=== PATIENT | female | born 1975 | race Caucasian/White ===

== ENCOUNTER → 2018-02-02 | Outpatient (CLI) | payer OTHER ==
--- NOTE | 2018-02-03 09:55 | USB ---
Reason for exam: clinical finding. History: Family history of premenopausal breast cancer in sister at age 20, premenopausal breast cancer in mother at age 50, and breast cancer in maternal grandmother. Benign stereotactic core biopsy of the right breast, November 28, 2004. Stereotactic core biopsy of the right breast, June 13, 2004. Took hormonal contraceptives for 3 years beginning at age 17. Taking antineoplastic for 2 years. Physical Findings: Nurse Summary: Patient complains of left axilla tenderness x 3 days (nurse nevin). US Breast LT Left complete breast ultrasound includes all four quadrants, the retroareolar region and axilla. Finding demonstrates no cystic or solid lesion seen. No abnormality seen in the axilla at the site of pain. These results were verbally communicated with the patient and result sheet given to the patient on 02/02/18. ASSESSMENT: Negative, BI-RAD 1 RECOMMENDATION: Return to routine screening mammogram schedule for both breasts. Back on schedule for June 2018. Manage on a clinical basis with regard to axillary pain.
== END | disposition home or self-care (01) ==
LOC: RADUSWWP 10:17
PROVIDERS: ATTEND Internal Medicine Hematology & Oncology
DX: N63.20 Unspecified lump in the left breast, unspecified quadrant (principal)

== ENCOUNTER → 2018-08-10 | Outpatient (CLI) | payer OTHER ==
--- NOTE | 2018-08-11 13:51 | MM ---
Reason for exam: screening (asymptomatic). Last mammogram was performed 1 year ago. History: Family history of premenopausal breast cancer in sister at age 20, premenopausal breast cancer in mother at age 50, and breast cancer in maternal grandmother. Benign stereotactic core biopsy of the right breast, November 28, 2004. Stereotactic core biopsy of the right breast, June 13, 2004. Took hormonal contraceptives for 3 years beginning at age 17. Taking antineoplastic for 2 years. Physical Findings: A clinical breast exam by your physician is recommended on an annual basis and results should be correlated with mammographic findings. MG Screening Mammo w CAD Bilateral CC and MLO view(s) were taken. Prior study comparison: July 28, 2017, bilateral MG screening mammo w CAD. June 11, 2016, bilateral MG screening mammo w CAD. There are scattered fibroglandular densities. Right biopsy marker noted. ASSESSMENT: Negative, BI-RAD 1 RECOMMENDATION: Routine screening mammogram of both breasts in 1 year. Manage on a clinical basis with regard to bilateral intermittent axillary pain x 1 year.
== END | disposition home or self-care (01) ==
LOC: RADMAMWWP 13:28
PROVIDERS: ATTEND Family Medicine
DX: Z12.31 Encounter for screening mammogram for malignant neoplasm of breast (principal)
CPT/HCPCS: 77067

== ENCOUNTER → 2019-01-30 | Outpatient (CLI) | payer OTHER ==
--- NOTE | 2019-01-30 09:01 | USB ---
Reason for exam: clinical finding. History: Family history of premenopausal breast cancer in sister at age 20, premenopausal breast cancer in mother at age 50, and breast cancer in maternal grandmother. Benign stereotactic core biopsy of the right breast, November 28, 2004. Stereotactic core biopsy of the right breast, June 13, 2004. Took hormonal contraceptives for 3 years beginning at age 17. Taking antineoplastic for 2 years. Indicated problem(s): pain in the right breast. Physical Findings: Nurse Summary: Patient complains of right axilla pain, intermittent sore/achy, occasional sharp pains x 6 month (nurse nevin). US Breast RT Right complete breast ultrasound includes all four quadrants, the retroareolar region and axilla. Finding demonstrates no cystic or solid lesion seen. Morphologically normal 6 axillary node stable on mammogram back to 2016. No cortical thickening. These results were verbally communicated with the patient and result sheet given to the patient on 01/30/19. ASSESSMENT: Benign, BI-RAD 2 RECOMMENDATION: Return to routine screening mammogram schedule for both breasts. Back on schedule. Manage patient on a clinical basis.
== END | disposition home or self-care (01) ==
LOC: RADUSWWP 06:50
PROVIDERS: ATTEND Internal Medicine Hematology & Oncology
DX: N64.4 Mastodynia (principal)

== ENCOUNTER → 2019-02-14 | Outpatient (CLI) | payer OTHER ==
--- NOTE | 2019-02-15 22:08 | US ---
EXAMINATION TYPE: US axilla RT DATE OF EXAM: 02/14/2019 COMPARISON: NONE CLINICAL HISTORY: R59.1 Lymphadenopathy. Intermittent bilateral axilla pain x 1 year Right axilla at patient's area of pain: appears wnl as seen IMPRESSION: As above. No suspicious adenopathy noted.
--- NOTE | 2019-02-15 22:09 | US ---
EXAMINATION TYPE: US axilla LT DATE OF EXAM: 02/14/2019 COMPARISON: NONE CLINICAL HISTORY: R59.1 Lymphadenopathy. Intermittent bilateral axilla pain x 1 year Left axilla at patient's area of pain: appears wnl as seen IMPRESSION: As above. No suspicious adenopathy. Similar findings noted in the opposite right axilla.
== END | disposition home or self-care (01) ==
LOC: RADUSWWP 15:23
PROVIDERS: ATTEND Surgery
DX: R59.1 Generalized enlarged lymph nodes (principal)

== ENCOUNTER 2020-03-08 11:05 | Day surgery (SDC) | payer OTHER ==
[2020-03-05 14:54] VITALS: BMI 43.8
[~2020-03-08 11:05] MED LIST: HYDROmorphone 0.5 MG/0.5 ML SYRINGE IVP PRN; LACTATED RINGERS 1,000 ML IV SCH; LIDOCAINE 1% (10MG/ML) FOR IV START INTRADERMA PRN; ONDANSETRON 4 MG/2 ML VIAL IVP ONE; Pre Op ABX Message 1 EACH MISC MISCELLANE ONE
[2020-03-08] MEDS ORDERED: LIDOCAINE 1% (10MG/ML) FOR IV START INTRADERMA ONE (11:44)
[2020-03-08 11:51] LABS: Glucose,Whole Blood 147 mg/dL (75-99)
[2020-03-08] MEDS ORDERED: ONDANSETRON 4 MG/2 ML VIAL IVP ONE (11:51)
[2020-03-08] MEDS ORDERED: DEXAMETHASONE SOD PHOS (MDV) 100 MG/10 ML VIAL IVP ONE (11:51)
[2020-03-08 11:54] VITALS: TEMP 97.1
[2020-03-08] MEDS ORDERED: PROPOFOL 10 MG/ML 20 ML VIAL IV ONE (13:02)
[2020-03-08] MEDS ORDERED: fentaNYL (PF) 50 MCG/ML 2 ML AMP ONE (13:02)
[2020-03-08] MEDS ORDERED: MIDAZOLAM 2 MG/2 ML VIAL ONE (13:02)
[2020-03-08] MEDS ORDERED: KETOROLAC 15 MG/ML 1 ML VIAL ONE (13:02)
[2020-03-08] MEDS ORDERED: LIDOCAINE 1%-EPI 1:100,000 20 ML VIAL SQ ONE ×2 (13:26)
[2020-03-08] MEDS ORDERED: BUPIVACAINE (PF) 0.5% 30 ML VIAL SQ ONE (13:26)
[2020-03-08 14:04] LABS: Glucose,Whole Blood 168 mg/dL (75-99)
[2020-03-08 14:14] VITALS: RESP 18
[2020-03-08 14:55] VITALS: BP 132/65; PULSE 100
--- NOTE | 2020-03-10 22:11 | P.OP ---
Date of Procedure: 03/08/20 Preoperative Diagnosis: Left carpal tunnel syndrome Postoperative Diagnosis: Left carpal tunnel syndrome Procedure(s) Performed: Left endoscopic carpal tunnel release Anesthesia: MAC, local Surgeon: Kameron Gonzalez Estimated Blood Loss (ml): 1 Condition: stable Disposition: same day Indications for Procedure: The patient is a 44-year-old female who was diagnosed with left carpal tunnel syndrome. Treatment options (and associated risks and benefits) were discussed in the office; the patient elected to undergo surgical release. In preop, additional questions were addressed and the patient wished to proceed with surgery. Consent forms were signed. The operative site was confirmed and marked in preop. Description of Procedure: The patient was positioned supine with the left arm on a hand table. A tourniquet was applied. Anesthesia was administered uneventfully. A time-out was performed, confirming patient identifiers, the operative side, site and the procedure to be performed: all team members expressed agreement. Using aseptic technique, local anesthetic was injected into the subcutaneous tissues around the planned incision. The left upper extremity was then prepped and draped in standard, sterile fashion. The limb was exsanguinated with an Esmarch and the tourniquet was inflated. Loupe magnification was used throughout the case for optimum visualization. A 1.5 cm transverse incision was marked proximal to the wrist flexion crease, in line with the radial border of the ring finger. The skin was sharply incised and the subcutaneous tissues were bluntly spread. The volar carpal fascia was identified and sharply incised in line with the path of the nerve. The median nerve was visualized below. Attempts to insert a synovial elevator demonstrated tethering against the nerve. A Troy was used to gently release the perineural adhesions. The synovial elevator was reinserted and passed easily. This was used to clear the underside of the transverse carpal ligament and release any remaining adhesions. The washboard effect was palpable. A dilator was inserted to sound and enlarge the carpal tunnel. The hamate hook was palpable ulnarly. The introitus to the tunnel was noted to be quite tight. The distal aspect of the volar carpal fascia was notably thickened; this was released under direct visualization, providing better access to the tunnel. The side-specific guide and camera were inserted. The transverse carpal ligament was clearly visualized above. The distal edge of the ligament was identified and palpated with a probe. A rasp was used to clear the remaining synovial adhesions. The endoscopic blade was inserted and the distal half of the ligament was sharply incised. Residual distal transverse fibers were released and then the proximal portion of the ligament was divided. Once fully released, the cut leaflets of the ligament spread apart widely. The camera and guide were removed. Proximal to the incision, the volar carpal/antebrachial fascia was released with scissors under direct visualization. At the level of the incision (and slightly proximal), there was a small amout of thickened perineural tissue causing some focal compression and restricting nerve mobility. A limited local median neurolysis was performed to release this tissue. The tourniquet was released after 14 minutes at 175 mmHg. Excellent hemostasis was obtained with manual pressure. The wound was thoroughly irrigated with normal saline. The incision was closed with interrupted 4-0 nylon sutures. Additional local anesthetic with epinephrine was injected for adjunct postoperative pain control and hemostasis. A soft, sterile dressing was applied. All sponge, needle and instrument counts were correct at the end of the case. The patient tolerated the procedure well and was transferred to recovery in stable condition.
== END 2020-03-08 15:18 | disposition home or self-care (01) ==
LOC: OR 11:05
PROVIDERS: ATTEND Orthopaedic Surgery
DX: G56.02 Carpal tunnel syndrome, left upper limb (principal); E11.9 Type 2 diabetes mellitus without complications; E78.5 Hyperlipidemia, unspecified; H91.90 Unspecified hearing loss, unspecified ear; Z97.3 Presence of spectacles and contact lenses; J45.909 Unspecified asthma, uncomplicated; Z96.652 Presence of left artificial knee joint; Z98.890 Other specified postprocedural states; Z83.3 Family history of diabetes mellitus; Z87.891 Personal history of nicotine dependence; Z79.891 Long term (current) use of opiate analgesic; Z79.84 Long term (current) use of oral hypoglycemic drugs; Z79.890 Hormone replacement therapy; Z79.899 Other long term (current) drug therapy
CPT/HCPCS: 29848; J2250; J2405; J3010; J1100; J1885; J2704; 93005

== ENCOUNTER 2021-12-06 22:17 | Emergency (ER) | payer OTHER ==
[2021-12-06 23:17] VITALS: BP 135/87; PULSE 81; RESP 18; TEMP 98
[2021-12-06] MEDS ORDERED: ACETAMINOPHEN TAB 500 MG TAB PO STA (23:18)
--- NOTE | 2021-12-06 23:48 | XR ---
EXAMINATION TYPE: XR foot complete LT DATE OF EXAM: 12/06/2021 COMPARISON: NONE HISTORY: Stubbed big toe TECHNIQUE: 3 views FINDINGS: Metatarsals are intact. I see no fracture nor dislocation. Joint spaces are normal. There is small plantar and Achilles calcaneal spurring. IMPRESSION: Negative left foot exam. Mild calcaneal spurring. No fracture seen of the big toe.
[2021-12-07] MEDS ORDERED: LIDOCAINE 1% INJ 10MG/ML (5 ML VIAL-PF) SQ ONE (00:38)
[2021-12-07] MEDS ORDERED: BUPIVACAINE (PF) 0.5% 30 ML VIAL SQ STA (00:39)
[2021-12-07] MEDS ORDERED: CEPHALEXIN 500MG STARTER PACK 4 CAP BTL PO STA (00:40)
[2021-12-07] MEDS ORDERED: ACET/COD 300 MG/30 MG STARTER PACK 6 TAB BTL PO STA (00:40)
--- NOTE | 2021-12-07 00:49 | ED ---
Lower Extremity Injury HPI - General Chief Complaint: Extremity Injury, Lower Stated Complaint: L foot pain Time Seen by Provider: 12/07/21 00:31 Source: patient, RN notes reviewed Mode of arrival: ambulatory - History of Present Illness Initial Comments: This is a pleasant 46-year-old female who stubbed her toe yesterday. Patient presents to the emergency department today after noticing that her nail plate had lifted off the nail bed. Patient complaining of pain anytime the area is moved or touched. She states pain is throbbing in nature. No other injuries. Patient does have a history of diabetes. No headache, no fever or chills, no changes in vision or hearing, no sore throat or difficulty with speech, no neck pain, no chest pain or shortness of breath, no abdominal pain, no nausea or vomiting, no changes in urination or bowel movements, no numbness or tingling, , no skin rashes or lesions. - Related Data Home Medications Medication Instructions Recorded Confirmed Actos (Unknown Dose) 45 mg pe PO DAILY 03/05/20 03/08/20 Albuterol Inhaler [Ventolin Hfa 1 puff INHALATION RT-QID PRN 03/05/20 03/08/20 Inhaler] Amaryl (Unknown Dose) 4 tab PO BID 03/05/20 03/08/20 Aspirin/Acetaminophen/Caffeine 2 each PO DIRECTED PRN 03/05/20 03/08/20 [Excedrin Migraine Caplet] HYDROcodone/APAP 10-325MG [Sterling 1 tab PO Q6HR PRN 03/05/20 03/08/20 10-325] Inhaler (Unknown Name) 2 puff INHALATION DAILY 03/05/20 03/08/20 Multivit with Calcium,Iron,Min 1 each PO DAILY 03/05/20 03/08/20 [Women's Multivitamin] Raloxifene [Evista] 60 mg PO DAILY 03/05/20 03/08/20 Simvastatin (Unknown Dose) 20 mg PO HS 03/05/20 03/08/20 Vitamin D (Unknown Dose) 125 mcg PO DAILY 03/05/20 03/08/20 metFORMIN HCL [Glucophage] 1,000 mg PO BID 03/05/20 03/08/20 Previous Rx's Medication Instructions Recorded Cephalexin [Keflex] 500 mg PO Q6HR #40 cap 12/07/21 Ibuprofen [Motrin] 600 mg PO Q8HR PRN #30 tab 12/07/21 Allergies Allergy/AdvReac Type Severity Reaction Status Date / Time onion Allergy Unknown Nausea & Verified 12/06/21 23:17 Vomiting Review of Systems ROS Statement: Those systems with pertinent positive or pertinent negative responses have been documented in the HPI. ROS Other: All systems not noted in ROS Statement are negative. Past Medical History Past Medical History: Asthma, Diabetes Mellitus, Hearing Disorder / Deafness, Osteoarthritis (OA) Additional Past Medical History / Comment(s): headaches, left knee pain, family hx of cancer-states evista rx for preventative., states hearing disorder (unsure of name) .,numbness and tingling left hand. History of Any Multi-Drug Resistant Organisms: None Reported Past Surgical History: Section, Hysterectomy, Joint Replacement, Orthopedic Surgery Additional Past Surgical History / Comment(s): X4, D & C, TOTAL LEFT KNEE (2017), CARPAL TUNNEL RIGHT., PARTIAL HYSTERECTOMY. Past Anesthesia/Blood Transfusion Reactions: Family History of Problems w/ Anesthesia, Postoperative Nausea & Vomiting (PONV) Additional Past Anesthesia/Blood Transfusion Reaction / Comment(s): MOTHER AND DAUGHTER = PONV Past Psychological History: No Psychological Hx Reported Smoking Status: Former smoker Past Alcohol Use History: Rare Past Drug Use History: None Reported - Past Family History Mother Family Medical History: Cancer Additional Family Medical History / Comment(s): CERVICAL , BREAST, OVARIAN & COLON CANCER. Sister(s) Family Medical History: Cancer General Exam General appearance: alert, in no apparent distress Head exam: Present: atraumatic, normocephalic, normal inspection Eye exam: Present: normal appearance, PERRL, EOMI. Absent: scleral icterus, conjunctival injection, periorbital swelling ENT exam: Present: normal exam, mucous membranes moist Neck exam: Present: normal inspection. Absent: tenderness, meningismus, lymphadenopathy Respiratory exam: Present: normal lung sounds bilaterally. Absent: respiratory distress, wheezes, rales, rhonchi, stridor Cardiovascular Exam: Present: regular rate, normal rhythm, normal heart sounds. Absent: systolic murmur, diastolic murmur, rubs, gallop, clicks GI/Abdominal exam: Present: soft, normal bowel sounds. Absent: distended, tenderness, guarding, rebound, rigid Extremities exam: Present: full ROM, tenderness (Patient tender to the left great toe when the nail plate is moved. No current bleeding. Mild erythema noted adjacent to the nail margin.), normal capillary refill. Absent: normal inspection, pedal edema, joint swelling, calf tenderness Back exam: Present: normal inspection Neurological exam: Present: alert, oriented X3, CN II-XII intact Psychiatric exam: Present: normal affect, normal mood Skin exam: Present: warm, dry, intact, normal color. Absent: rash Course Vital Signs 12/06/21 23:12 Temperature 98 F Pulse Rate 81 Respiratory 18 Rate Blood Pressure 135/87 O2 Sat by Pulse 98 Oximetry Procedures - Procedures Initial comment: Left great toe was prepped and draped in the usual fashion. Betadine was used to prep the toe. Digital block was performed using 0.5% lidocaine. 3 mL of anesthetic was used using a 27-gauge needle. Patient had adequate anesthesia. The nearly totally avulsed nail plate was elevated from the nail bed using hemostats. Nail plate was removed without difficulty. Sterile dressing applied. Wound was irrigated copiously prior to sterile dressing application. Patient tolerated well Medical Decision Making - Medical Decision Making Patient has a nail avulsion which is almost 100%. Nail plate will need to be removed. We'll set the patient up for a digital block and nail plate removal. Patient does have some erythema consistent with an early infection. We'll treat with cephalexin. Discussed options with the patient. Patient verbally consented to nail plate removal as this was likely an 80-95% avulsion of the nail plate. I explained that this will likely fall off on its own anyway. Prophylactic antibiotics given. Patient was told to return to the ER for any signs or symptoms worsen. Told to return immediately if any other problems arise. All questions answered. Treatment plan discussed. Patient in agreement Every effort has been made to ensure accuracy of this dictation. However, due to the limitations of electronic medical records and dictation devices, errors in charting still occur. Alligator Shear Operator, Dr. Marsh Disposition Clinical Impression: Nail avulsion of toe Narrative: Left great toenail avulsion Disposition: HOME SELF-CARE Condition: Stable Instructions (If sedation given, give patient instructions): Nail Avulsion (ED), Nail Removal (ED) Additional Instructions: Wash the wound daily with warm soap and water. Apply thin layer of antibiotic ointment such as Neosporin or triple antibiotic. Keep covered with sterile bandage. Use the postop shoe as directed. Follow-up with your regular doctor. Follow-up with your regular physician as directed. Return to the ER immediately if any symptoms worsen, new symptoms arise, or any other problems develop. Take the antibiotics as directed Is patient prescribed a controlled substance at d/c from ED?: No Referrals: Leno Salazar MD [Primary Care Provider] - 1-2 days
[2021-12-07] MEDS ORDERED: BACITRACIN OINT 1 EACH PACKET TOPICAL ONE (01:45)
== END 2021-12-07 02:51 | disposition home or self-care (01) ==
LOC: EC 22:17
DX: S91.202A Unspecified open wound of left great toe with damage to nail, initial encounter (principal); E11.9 Type 2 diabetes mellitus without complications; J45.909 Unspecified asthma, uncomplicated; M19.90 Unspecified osteoarthritis, unspecified site; Z91.018 Allergy to other foods; Z79.51 Long term (current) use of inhaled steroids; Z79.899 Other long term (current) drug therapy; Z79.84 Long term (current) use of oral hypoglycemic drugs; Z87.891 Personal history of nicotine dependence; W22.8XXA Striking against or struck by other objects, initial encounter
CPT/HCPCS: 73630; 99283; 11730; J2001

== ENCOUNTER → 2023-03-15 | Outpatient (CLI) | payer OTHER ==
--- NOTE | 2023-03-15 13:47 | MM ---
Reason for Exam: Screening (asymptomatic). Last mammogram was performed 2 year(s) and 2 month(s) ago. Patient History: Menarche at age 10. First Full-Term at age 19. Hysterectomy at age 33. Hormonal Contraceptives for 3 years from age 17 until age 22. 11/28/2004, Benign Stereotactic Core Biopsy on the right side. 06/13/2004, Stereotactic Core Biopsy on the Right side. Maternal grandmother had breast cancer. Sister had breast cancer, age 20. Mother had breast cancer, age 50. Risk Values: Kanika 5 year model risk: 6.5%. NCI Lifetime model risk: 44.1%. Prior Study Comparison: 06/11/2016 Bilateral Screening Mammogram, [facility]. 07/28/2017 Bilateral Screening Mammogram, [facility]. 08/10/2018 Bilateral Screening Mammogram, [facility]. 01/02/2021 Bilateral Screening Mammogram, [facility]. Tissue Density: The breast tissue is almost entirely fat. Findings: Analyzed By CAD. There is no suspicious group of microcalcifications or new suspicious mass. Right breast biopsy clip. There is no suspicious group of microcalcifications or new suspicious mass. Overall Assessment: Benign, BI-RAD 2 Management: Screening Mammogram of both breasts in [address] [facility] will attempt to contact patient to return for supplemental views and ultrasound if indicated. Patient should continue monthly self-breast exams. A clinical breast exam by your physician is recommended on an annual basis. This exam should not preclude additional follow-up of suspicious palpable abnormalities. Note on Kanika scores and lifetime risk: 1. A Kanika score greater than 3% is considered moderate risk. If this is the case, consider specialist referral to assess eligibility for a risk reducing agent. 2. If overall lifetime risk for the development of breast cancer is 20% or higher, the patient may qualify for future screening with alternating mammogram and breast MRI. Electronically signed and approved by: Gurjit Irving DO
== END | disposition home or self-care (01) ==
LOC: RADMAMWWP 13:14
PROVIDERS: ATTEND Family Medicine
DX: Z12.31 Encounter for screening mammogram for malignant neoplasm of breast (principal); Z80.3 Family history of malignant neoplasm of breast
CPT/HCPCS: 77067

== ENCOUNTER → 2024-04-28 | Outpatient (CLI) | payer BC ==
--- NOTE | 2024-05-07 17:24 | MM ---
Reason for Exam: Screening (asymptomatic). Last mammogram was performed 1 year(s) and 2 month(s) ago. Patient History: Menarche at age 10. First Full-Term at age 19. Hysterectomy at age 33. Hormonal Contraceptives for 3 years from age 17 until age 22. 11/28/2004, Benign Stereotactic Core Biopsy on the right side. 06/13/2004, Stereotactic Core Biopsy on the Right side. Maternal grandmother had breast cancer. Sister had breast cancer, age 20. Mother had breast cancer, age 50. Risk Values: Kanika 5 year model risk: 5.9%. NCI Lifetime model risk: 43.2%. Prior Study Comparison: 08/10/2018 Bilateral Screening Mammogram, [facility]. 01/02/2021 Bilateral Screening Mammogram, [facility]. 03/15/2023 Bilateral MG screening mammo w CAD, [facility]. Tissue Density: There are scattered areas of fibroglandular density. Findings: Analyzed By CAD. The pattern is symmetrical. Nodularity is present bilaterally. Core marker is within the right breast. No suspicious groups of microcalcifications, spiculated or lobular masses, architectural distortion or other secondary signs of malignancy are mammographically apparent. Overall Assessment: Benign, BI-RAD 2 Management: Screening Mammogram of both breasts in 1 year. A negative mammogram report should not preclude additional follow up of suspicious palpable abnormalities. Patient should continue monthly self breast exam. A clinical breast exam by your physician is recommended on an annual basis and results should be correlated with mammographic findings. Note on Kanika scores and lifetime risk: 1. A Kanika score greater than 3% is considered moderate risk. If this is the case, consider specialist referral to assess eligibility for a risk reducing agent. 2. If overall lifetime risk for the development of breast cancer is 20% or higher, the patient may qualify for future screening with alternating mammogram and breast MRI. [facility], , 05/07/2024 5:21 PM. Electronically signed and approved by: Truong Serrano D.O. Radiologis
== END | disposition home or self-care (01) ==
LOC: RADMAMWWP 14:47
PROVIDERS: ATTEND Family Medicine
DX: Z12.31 Encounter for screening mammogram for malignant neoplasm of breast (principal); R92.323 Mammographic fibroglandular density, bilateral breasts; Z80.3 Family history of malignant neoplasm of breast
CPT/HCPCS: 77063; 77067